=== PATIENT | male | born 1975 | race Caucasian/White ===

== ENCOUNTER 2020-03-13 11:57 | Outpatient (REF) | payer BC, SELFPAY | END 2020-03-13 11:58 | disposition home or self-care (01) | LOC: HO.WFDLDS 11:57 | PROVIDERS: Visit Provider Internal Medicine | DX: Z20.828 Contact with and (suspected) exposure to other viral communicable diseases (principal) | CPT/HCPCS: 87635 ==

== ENCOUNTER 2020-05-09 10:33 | Outpatient (REF) | payer BC, SELFPAY | END 2020-05-09 10:34 | disposition home or self-care (01) | LOC: HO.LNP 10:33 | PROVIDERS: Visit Provider Hospitalist | DX: Z20.828 Contact with and (suspected) exposure to other viral communicable diseases (principal) | CPT/HCPCS: U0003 ==